=== PATIENT | male | born 1970 | race Caucasian/White ===

== ENCOUNTER 2019-09-13 18:18 | Emergency (ER) | payer MEDICAID ==
[~2019-09-13] VITALS: Ht 182.9 cm; Wt 83.1 kg
[2019-09-13 18:21] VITALS: BP 144/96
[2019-09-13] MEDS ORDERED: BUPIVACAINE 0.25% ONE (18:35)
[2019-09-13] MEDS ORDERED: LIDOCAINE-MPF 1%, 5ML ONE (18:35)
== END 2019-09-13 19:05 | disposition home or self-care (01) ==
LOC: ED 18:55
DX: K02.9 Dental caries, unspecified (principal); R51 Headache; F17.200 Nicotine dependence, unspecified, uncomplicated; Z72.9 Problem related to lifestyle, unspecified; Z72.89 Other problems related to lifestyle
CPT/HCPCS: 64400; 99284